=== PATIENT | female | born 1975 | race Caucasian/White ===

== ENCOUNTER → 2020-02-29 11:16 | Outpatient (CLI) | payer OTHER, SELFPAY ==
--- NOTE | ~2020-02-29 | XR_ITS ---
XR lumbar spine min 4V, XR sacroiliac joints min 3V 02/29/2020 12:19 Indication: Osteoarthritis. Procedure: 5 views lumbar spine and 3 view sacroiliac joints Comparison: No prior studies for comparison. Findings: There is disc narrowing at L3-4 and L4-5. There are facet degenerative changes at L4-5 and L5-S1. No acute fracture, subluxation or dislocation. No evidence for spondylolisthesis. Sacroiliac j oints are symmetric without evidence for significant degenerative change, ankylosis or erosive change . Sacral foramen are symmetric. There is a sclerotic lesion of the right ilium, likely benign bone is land. Impression: 1: Mild lumbar spondylosis. Reviewed, dictated and finalized at location A. PING CAR CONDUCTOR Impression: 1: Mild lumbar spondylosis. Impression: 1: Mild lumbar spondylosis.
--- NOTE | ~2020-02-29 | XR_ITS ---
EXAMINATION: XR hand BI arthritis min 3V DATE: 02/29/2020 12:19 INDICATION: Unspecified osteoarthritis, unspecified site. TECHNIQUE: 4 views of right hand and 4 views of left hand on a total of 7 radiographs were obtained. COMPARISON: None. FINDINGS: RIGHT HAND: Bone alignment is normal. No fracture. There is mild osteoarthritis of first carpometacar pal joint and second and third distal interphalangeal joints. LEFT HAND: Bone alignment is normal. No fracture. There is mild osteoarthritis of first carpometacarp al joint and second and fifth distal interphalangeal joints. IMPRESSION: 1. Mild polyarticular osteoarthritis. Reviewed, dictated and finalized at location A. RIST
--- NOTE | ~2020-02-29 | XR_ITS ---
EXAMINATION: XR knee LT min 4V DATE: 02/29/2020 12:19 INDICATION: Unspecified osteoarthritis, unspecified site. TECHNIQUE: 4 views of left knee were obtained. COMPARISON: None. FINDINGS: Bone alignment is normal. No fracture. There is mild osteoarthritis of medial and patellofe moral compartments. No knee joint effusion. IMPRESSION: 1. Mild left knee osteoarthritis. Reviewed, dictated and finalized at location A. OR ESTIMATOR
== END ==
PROVIDERS: PCP Physician Assistant; Visit Provider Internal Medicine
DX: M47.896 Other spondylosis, lumbar region (principal); M19.041 Primary osteoarthritis, right hand; M19.042 Primary osteoarthritis, left hand; M17.12 Unilateral primary osteoarthritis, left knee
CPT/HCPCS: 72110; 72202; 73130; 73564

== ENCOUNTER 2024-05-25 10:56 | Outpatient (CLI) | payer OTHER, SELFPAY ==
--- NOTE | ~2024-05-25 | XR_ITS ---
EXAMINATION: XR chest 2V DATE: 05/25/2024 11:19 INDICATION: 10 days of cough TECHNIQUE: PA and lateral views of the chest were obtained. COMPARISON: None FINDINGS: The lungs are clear with no focal airspace opacities, pulmonary edema, pleural effusion or pneumothor ax. Cardiomediastinal silhouette is normal. Prominent amorphous calcific density overlying the right greater tuberosity consistent with rotator cuff calcific tendinitis. IMPRESSION: 1. No acute cardiopulmonary disease. 2. Right rotator cuff calcific tendinitis. Reviewed, dictated and finalized at location [facility]. [facility]
--- OUTSIDE RECORDS SUMMARY | 2024-05-25 14:02 | XMS_ITS ---
Author Organization [employer] [facility] Address [address] [address] Care Team Providers Care Bar Examiner Name Role Phone Brooke Heaton Primary Care Provider [phone] AMADOR AMADO Unavailable [phone] REASON FOR VISIT lab review/follow up Medications Medication SIG (Take, Route, Frequency, Duration) Notes Start Date End Date Status Vitamin D2 *Please review a nd pick correct strength-formulatio n from TurnStaran options. If intended option is not shown, discontinue and re-order from Quick Search* Active Tirosint 50 MCG (0.05 MG) 1 CAP(S) ORALLY ONCE A DAY *Please review and pick correct strength-formulatio n from TurnStaran options. If intended option is not shown, discontinue and re-order from Quick Search* Active metFORMIN HCl ER 500 MG TAKE 1 TABLET BY MOUTH ONCE A DAY WITH LARGEST MEAL 30 DAYS for 90 Active Mounjaro 2.5 MG/0.5ML as directed Subcutaneous Active Fish Oil *Please review a nd pick correct strength-formulatio n from TurnStaran options. If intended option is not shown, discontinue and re-order from Quick Search* Active Vital Signs Blood pressure systolic 97 mm Hg 03/19/20 24 Blood pressure diastolic 56 mm Hg 024 Heart Rate 74 /min 03/19/2024 Height 68 in 03/19/2024 Weight 184.0 lbs 03/19/2024 BMI 27.97 kg/m2 03/19/2024 Encounters Encounter Location Date Provider Diagnosis [facility], [place] - Brooke Heaton [id number] [place] [address] 03/19/2024 Brooke Heaton Hypothyroidism, unspecified E03.9 ; Vitamin D deficiency, unspecified E55.9 ; Obesity, unspecified E66.9 and Dietary counseling and surveillance Z71.3 Assessments Encounter Date Diagnosis (ICD Code) Assessment Notes Treatment Notes Treatment Clinical Notes Section Notes 03/19/2024 Hypothyroidism, unspecified (ICD-10 - E03.9) 03/19/2024 Vitamin D deficiency, unspecified (ICD-10 - E55.9) 03/19/2024 Obesity, unspecified (ICD-10 - E66.9) 03/19/2024 Dietary counseling and surveillance (ICD-10 - Z71.3) 03/19/2024 Other Assessment and Plan: 1. Weight loss:- Patient has lost 19 pounds and is feeling well. Continue current weight loss plan and monitor progress. 2. Constipation:- Patient reports improvement in constipation by adjusting diet. Encourage continued dietary adjustments and adequate hydration. 3. Medication management (Mounjaro, Metformin, Vitamin D2, Fish oil):- Patient is stable on 2.5 mg Mounjaro and does not wish to increase the dose. Continue current medication regimen and monitor for any changes in symptoms or side effects. 4. Blood glucose monitoring (Dexcom):- Patient reports occasional high readings due to stress but overall good control. Encourage continued monitoring and stress management techniques. 5. Menstrual cycle irregularity:- Patient reports cycles are in range but not as consistent. Continue to monitor and reassess if changes occur. 6. Sleep and snoring:- Patient reports improvement in sleep and minimal snoring. Continue current management and monitor for any changes. 7. Thyroid medication (Tirosint):- Patient is stable on current dose. Monitor weight loss progress and consider adjusting the dose if significant weight loss occurs. 8. Shoulder discomfort and possible frozen shoulder:- Encourage continued physical therapy, glucosamine chondroitin supplementation, and heat therapy as needed. If pain worsens or does not improve, consider imaging. 9. Refills and blood work:- Check patient's refill status and provide refills as needed. Order blood work for the next visit in the spring. 10. Nutritional support:- Patient to continue with shakes as part of her weight loss plan. Spent 15 minutes preventative counseling patient on dietary recommendations and changes in setting of hyperglycemia- need to restrict refined sugars and processed foods and incorporate up to 150 minutes of moderate level activity weekly. Spent 25 minutes preparing to see the patient (ex review of tests/chart), obtaining and / or reviewing separately obtained history, performing a medically appropriate examination and/or evaluation, counseling and educating the patient/family/wound care technician, ordering medications, tests, or procedures, referring and communicating with other health daycare provider, documenting clinical information in the electronic or other health record, independently interpreting results and communicating results to the patient/family/wound care technician and care coordinating patient plan. Patient alert and oriented x 4 and aware of discussion noted above and in agreeance to plan in management of hypothyroidism, obesity/weight loss management, vit D def and perimenopausal changes. Plan Of Treatment Treatment Notes Assessment Notes Other Assessment and Plan: 1. Weight loss:- Patient has lost 19 pounds and is feeling well. Continue current weight loss plan and monitor progress. 2. Constipation:- Patient reports improvement in constipation by adjusting diet. Encourage continued dietary adjustments and adequate hydration. 3. Medication management (Mounjaro, Metformin, Vitamin D2, Fish oil):- Patient is stable on 2.5 mg Mounjaro and does not wish to increase the dose. Continue current medication regimen and monitor for any changes in symptoms or side effects. 4. Blood glucose monitoring (Dexcom):- Patient reports occasional high readings due to stress but overall good control. Encourage continued monitoring and stress management techniques. 5. Menstrual cycle irregularity:- Patient reports cycles are in range but not as consistent. Continue to monitor and reassess if changes occur. 6. Sleep and snoring:- Patient reports improvement in sleep and minimal snoring. Continue current management and monitor for any changes. 7. Thyroid medication (Tirosint):- Patient is stable on current dose. Monitor weight loss progress and consider adjusting the dose if significant weight loss occurs. 8. Shoulder discomfort and possible frozen shoulder:- Encourage continued physical therapy, glucosamine chondroitin supplementation, and heat therapy as needed. If pain worsens or does not improve, consider imaging. 9. Refills and blood work:- Check patient's refill status and provide refills as needed. Order blood work for the next visit in the spring. 10. Nutritional support:- Patient to continue with shakes as part of her weight loss plan. Spent 15 minutes preventative counseling patient on dietary recommendations and changes in setting of hyperglycemia- need to restrict refined sugars and processed foods and incorporate up to 150 minutes of moderate level activity weekly. Spent 25 minutes preparing to see the patient (ex review of tests/chart), obtaining and / or reviewing separately obtained history, performing a medically appropriate examination and/or evaluation, counseling and educating the patient/family/caregiver, ordering medications, tests, or procedures, referring and communicating with other health daycare provider, documenting clinical information in the electronic or other health record, independently interpreting results and communicating results to the patient/family/caregiver and care coordinating patient plan. Patient alert and oriented x 4 and aware of discussion noted above and in agreeance to plan in management of hypothyroidism, obesity/weight loss management, vit D def and perimenopausal changes. Next Appt Details Follow Up: 4 Months, Reason: labwork Provider Name:Brooke Heaton, 10:15:00 AM, [address] , [place], [address], Progress Notes * Carin AKHTARDOB:1975 ( 49 yo F)Acc No.[id number]:03/19/2024 Progress Notes Patient: Carin JACOBS Provider: Jose Heaton MD :1975 A ge:49 Y S ex:Female Date:03/19/2024 Address:[address] [place] [address] Subjective: * Chief Complaints: * 1 . Lab review/follow up. * HPI: I nterval Hx: 49 yo female comes in for follow up in management of hypothyroidism, fatigue and obesity. last seen in Dec at that time we continued tirosint 50 mcg daily. We continued metformin and added zepbound for weight loss/management. Carin reports a 19-pound weight loss and overall well-being, with improved constipation through dietary adjustments. She is stable on 2.5 mg Mounjaro, metformin, vitamin D2, and fish oil, and does not wish to increase her medication dosage. Her blood glucose levels are generally well-controlled with occasional stress-related spikes. She has irregular menstrual cycles and improved sleep. Carin is managing shoulder discomfort with physical therapy and Pilates, and is considering glucosamine chondroitin supplementation. She is paying [id number] for Tirosint due to insurance coverage issues. The patient, Carin, reports a weight loss of 19 pounds and is feeling well overall. She experienced a bout of constipation but has managed it by adjusting her diet. She has been taking 2.5 mg of Mounjaro for three to four months and does not feel the need to increase the dosage. Carin is also taking metformin, vitamin D2, and fish oil. She reports her menstrual cycles are within range but not as consistent as before. Carin has been monitoring her blood glucose levels with a Dexcom device and has noticed occasional higher readings due to stress, such as 143 mg/dL, but they do not remain elevated for long periods. She is hesitant to increase her medication dosage as she is not diabetic. She mentions that her extreme lows during sleep have improved. The patient has been working with a dietitian and has been consuming lemon water to help with blood sugar spikes and inflammation. She is open to the possibility of coming off thyroid medication if her health continues to improve. Carin reports a possible issue with her shoulder, which has been assessed by a physical therapist and a massage therapist. She has been advised to consider the possibility of frozen shoulder. The patient is currently not taking any glucosamine or chondroitin supplements for this issue. She is participating in physical therapy and Pilates to improve her range of motion. The patient is unsure about her medication refills and mentions that her pharmacy usually contacts the office for refills. She is currently paying around $60 to $70 per month for Tirosint, which is not covered by her insurance. She has been prescribed the gel capsule form due to her gluten intolerance. * ROS: U ROLOGY: no d ifficulty urinating. n o b lood in urine. n o u rinary urgency. n o f requent urination. n o u rinary incontinence. n o v oiding dysfunction. n o v ulvodynia. n o d ysparaunia. n o r ecurrent UTI. n o w eak flow. n o d ribbling after urination. n o f requent bladder infections. n o k idney stone. n o k idney disease. n o u rine hesitancy.?no p ainful urination. N UTRITION: greater than body requirmemts y es. L ess than body requirements y es. a ppropriate / adequate y es, y es. C ONSTITUTIONAL: no w eight gain. n o l oss of appetite. n o?fever. n o w eakness. n o w eight loss. n o n ight sweats. n o n ausea. n o v isual changes. n o c hange in sleep patterns. h +p reviewed y es, R OS form reviewed with patient see scan for detail. n o c hange in activity capacity.? D ERMATOLOGY: no r jakub. n o c hange in color of moles. n o?lumps. n o d ry or sensitive skin. n o h sherlyn. n o o filomena skin. n o?acne. n o m oles-irregular. n o m oles-change/new. n o b oils. n o dandruff. n o e xcessive body odor. n o p soriasis. n o f ungal infections. n o n ail problems. n o r edness/inflammation. n o a thlete's foot. n o s kin cancer. n o e czema. E NDOCRINOLOGY: no f atigue. n o e xcessive sweating. n o e xcessive thirst. n o e xcessive urination. n o w eight loss. n o s leep disturbance. n o c old intolerance. n o h eat intolerence. n o t hyroid disease. n o i ncreased loss of hair. n o h x of borderline diabetes. n o d iabetes. n o a bdormal body hair. n o r heumatism. n o c hanges in skin texture.? N EUROLOGY: no h eadache. n o t ingling numbness. n o s eizures. n o i nsomnia. n o m andria loss. n o d izziness. n o g ait abnormality. n o c hange in sensation anywhere on body. n o l ocalized weakness or numbness. n o b lackouts or near blackouts. n o m igraine. n o t remors.?no f ainting spells. n o h ead injury. n o s troke. O PTHALMOLOGY: no d iminished vision. n o e ye irritation. n o?drainage from eyes. n o b lurring of vision. n o s easonal eye sx. n o?dander related eye sx. n o l oss of vision. n o c ataracts. n o g lasses/contacts. n o g laucoma. n o d etached retina. n o m acular degeneration.?no e ye redness. R ESPIRATORY: no s hortness of breath. n o c hest pain. n o?wheezing. n o a sthma. n o b reathlessness when lying flat. n o p rolonged cough. n o f requent infections (bronchitis). n o e mphysema. n o c hest congestion. n o s leep apnea. A LLERGY: no r unny nose. n o s cratchy throat. n o i tchy eyes. n o e ar fullness. n o s inus congestion. n o s tuffy nose. n o w atery eyes. n o s easonal allergies. n o h ay fever. n o a llergy.?no p olyps. n o s neezing. H EMATOLOGY/LYMPH: no s wollen glands. n o f atigue. n o l oss of appetite. n o e asy bruising. n o e asy bleeding. n o a nemia. ? E NT: no c old. n o c ough. n o c oughing blood.?no n ose bleed. n o h earing loss. n o c hange in voice. n o s ore throat. n o r inging in ears. n o s noring. n o e ar pain. n o r unny nose. n o w atery eyes. n o s inus infection. n o e ar infection. n o facial pain. n o h oarseness. n o g oiter. n o g um problems. n o?postnasal drip. n o f requent nosebleeds. C ARDIOLOGY: no c hest pain. n o p alpitations. n o l eg swelling. n o d izziness. n o s hortness of breath. n o v aricose veins.?no l eg cramps. n o c old hands or feet. n o h igh blood pressure. n o ankle swelling. n o c ardiac catheterization. n o h eart attacks. n o a ngina. n o m urmurs. n o l ow blood pressure. n o l eg pain that resolves w/rest. n o p urple fingers or lips. n o i rregular heart rate. n o c ongenital heart defects. n o d izziness when standing up quickly. n o a wakening at night short of breath. G ASTROENTEROLOGY: no n ausea. n o h eartburn. n o s tool incontinence. n o r eflux. n o a bdominal pain. n o i ndigestion. n o h emorrhoids. n o h iatal hernia. n o u lcers. n o a nal fissures. n o?hepatitis. n o g allstones. n o r ed blood after bowel movements. n o v omiting. n o b loating/belching. n o d ifficulty swallowing. n o d iarrhea.?no c onstipation. n o c hange in bowel habits. n o b lood in stool. ? M USCULOSKELETAL: no j oint swelling. n o j oint pain. n o l eg cramps. n o j oint stiffness. n o a rthritis. n o b ack pain. n o?muscle aches. n o m orning stiffness. n o t endinitis. n o n jeannine pain. no b ursitis. n o b one marrow biopsy. n o g out. a ctivity intolerance?weakness. n o f racture. P SYCHOLOGY: no h igh stress level. n o d epression. n o?sleep disturbances. n o r brunilda sx worse with stress. n o s uicidal ideation. n o e ating disorder. n o m ental or physical abuse. n o a nxiety. n o h eadaches. d isease state y es. F EMALE REPRODUCTIVE: no h eavy periods. n o d ysparaunia. n o s exually active. n o p remenstrual syndrome. n o d ysmenorrhea. n o i nfertility. n o f requent yeast infections. n o v aginal itching. n o i ntermenstrual bleeding. n o p ost coital bleeding. n o p ostmenopausal bleeding. n o p elvic pain. n o m enstral cycle. n o v aginal discharge. n o v aginal dryness. n o o varian cysts. n o f ibroids. n o d ischarge from breast. n o abn. bleeding between cycles. n o p ostmenopausal symptoms. n o l oss of sexual interest. n o p ainful sexual intercourse. n o e ndometriosis. n o v aginal warts. n o a bnormal pap. n o i rregular periods. n o a bnormal vaginal discharge. n o h ot flashes. * Medical History: H ypoglycemic, Gestational Diabetes. * Surgical History: a ppendectomy , ablation , Child 1999, 2003,2005, 2007 . * Family History: N o Family History documented.. * Social History: S moking: no . A lcohol: yes, rarely. * Medications: T tommyg Mounjaro(Tirzepatide) 2.5 MG/0.5ML Solution Auto-injector as directed Subcutaneous , Taking Fish Oil , Notes to Pharmacist: *Please review and pick correct strength-formulation from TurnStaran options. If intended option is not shown, discontinue and re-order from Quick Search*, Taking Vitamin D2 , Notes to Pharmacist: *Please review and pick correct strength-formulation from TurnStaran options. If intended option is not shown, discontinue and re-order from Quick Search*, Taking Tirosint 50 MCG (0.05 MG) CAPSULE 1 CAP(S) ORALLY ONCE A DAY , Notes to Pharmacist: *Please review and pick correct strength-formulation from [employer]Staran options. If intended option is not shown, discontinue and re-order from Quick Search*, Taking metFORMIN HCl ER 500 MG Tablet Extended Release 24 Hour TAKE 1 TABLET BY MOUTH ONCE A DAY WITH LARGEST MEAL 30 DAYS Objective: * Vitals: H R: 74, BP: 97/56, Ht: 68, Wt: 184.0, BMI: 27.97. * Examination: G eneral Examination: General n ormal, NAD, well nourished and hydrated, pleasant. Neck, thyroid : s upple. Heart: B P wnl, RSR, no murmurs. Lungs: n ormal, respirations easy with conversation and ambulation. Abdomen: n ormal, round, non-distended. Neurologic exam: u nremarkable. Extremities: u nremarkable. Peripheral pulses: n ormal (2+) bilaterally . Psych: o rientation to person, place & situation, appropriate judgment noted. Assessment: * Assessment: 1. H ypothyroidism, unspecified - E03.9 (Primary) 2 . V itamin D deficiency, unspecified - E55.9 3 . O besity, unspecified - E66.9 4 . D ietary counseling and surveillance - Z71.3 Plan: * Treatment: * Procedure Codes: 9 9401 P/M BANKER MASON, INDIV 15 MIN * Follow Up: 4 Months (Reason: labwork) * Billing Information: * Visit Code: 94649 Office Visit, Est Pt., Level 4. * Procedure Codes: 71888 P/M BANKER [facility]ON, INDIV 15 MIN. * E WASHER Sign off status: Completed true * Provider: Jose Heaton MD Date: 1 05/20/2023 Generated for Renea gold/Kirstie/Escobaritting on: 0 05/25/2024 02:02 PM PLATE WASHER History and Physical Notes * HPI (History of Present Illness) Category Sub-Category Detail Notes Category Not es Interval Hx 49 yo female comes in for follow up in management of hypothyroidism, fatigue and obesity. last seen in Dec at that time we continued tirosint 50 mcg daily. We continued metformin and added zepbound for weight loss/management. Carin reports a 19-pound weight loss and overall well-being, with improved constipation through dietary adjustments. She is stable on 2.5 mg Mounjaro, metformin, vitamin D2, and fish oil, and does not wish to increase her medication dosage. Her blood glucose levels are generally well-controlled with occasional stress-related spikes. She has irregular menstrual cycles and improved sleep. Carin is managing shoulder discomfort with physical therapy and Pilates, and is considering glucosamine chondroitin supplementation. She is paying [id number] for Tirosint due to insurance coverage issues. The patient, Carin, reports a weight loss of 19 pounds and is feeling well overall. She experienced a bout of constipation but has managed it by adjusting her diet. She has been taking 2.5 mg of Mounjaro for three to four months and does not feel the need to increase the dosage. Carin is also taking metformin, vitamin D2, and fish oil. She reports her menstrual cycles are within range but not as consistent as before. Carin has been monitoring her blood glucose levels with a Dexcom device and has noticed occasional higher readings due to stress, such as 143 mg/dL, but they do not remain elevated for long periods. She is hesitant to increase her medication dosage as she is not diabetic. She mentions that her extreme lows during sleep have improved. The patient has been working with a dietitian and has been consuming lemon water to help with blood sugar spikes and inflammation. She is open to the possibility of coming off thyroid medication if her health continues to improve. Carin reports a possible issue with her shoulder, which has been assessed by a physical therapist and a massage therapist. She has been advised to consider the possibility of frozen shoulder. The patient is currently not taking any glucosamine or chondroitin supplements for this issue. She is participating in physical therapy and Pilates to improve her range of motion. The patient is unsure about her medication refills and mentions that her pharmacy usually contacts the office for refills. She is currently paying around $60 to $70 per month for Tirosint, which is not covered by her insurance. She has been prescribed the gel capsule form due to her gluten intolerance. Examination Category Sub-Category Detail Notes Category Not es General Examination Neck, thyroid : supple Heart: BP wnl, RSR, no murm urs Lungs: normal, respirations easy with conversation and ambulation Abdomen: normal, round, non-d istended Extremities: unremarkable General normal, NAD, well no urished and hydrated, pleasant Neurologic exam: unremarkable Peripheral pulses: normal (2+) bilatera lly Psych: orientation to perso n, place & situation, appropriate judgment noted
--- OUTSIDE RECORDS SUMMARY | 2024-05-25 14:02 | XMS_ITS ---
Author Organization [facility] Address [address] [address] Care Team Providers Care Project Economist Name Role Phone Brooke Heaton Primary Care Provider AMADOR AMADO Unavailable [phone] REASON FOR VISIT 3 Month Follow-up Encounters Encounter Location Date Provider Diagnosis [facility] - Brooke Heaton [address] [place] [address] 03/12/2024 Brooke Heaton Plan Of Treatment Next Appt Details Provider Name:Brooke Sudarshan, 10:15:00 AM, [address], [place], [address], Progress Notes * Carin AKHTARDOB:1975 ( 49 yo F)Acc No.[id number]:03/12/2024 Progress Notes Patient: Carin JACOBS Provider: Jose Heaton MD :1975 A ge:49 Y S ex:Female Date:03/12/2024 Address:[address] Subjective: * Chief Complaints: * 1 . 3 Month Follow-up. * Medical History: Objective: * Vitals: Assessment: Plan: * Treatment: * Billing Information: * Visit Code: * Procedure Codes: * Electronic signature of Davian Heaton MD on 05/25/2024 at 02:02 PM OFFICE AGENT Sign off status: Pending * Provider: Jose Heaton MD Date: 1 05/13/2023 Generated for Renea gold/Kirstie/eTanismitting on: 0 05/25/2024 02:02 PM OFFICE AGENT
--- OUTSIDE RECORDS SUMMARY | 2024-05-25 14:03 | XMS_ITS | Patient Health Record ---
Author Organization [employer] [facility] Address [address] [address] Care Team Providers Care Client Liaison Name Role Phone Brooke Heaton Primary Care Provider AMADOR AMADO Unavailable [phone] Migration, Provider Unavailable Unavailable Results Component Value Reference Range Notes COMPREHENSIVE METABOLIC PANE L Reviewed date:11/29/2023 08:30:35 AM Interpretation: Performing [facility], [address], [place], [address] Izabel Mccurdy Notes/Report: FASTING:YES FASTING: YES VITAMIN D, 25-HYDROXY, LC/MS /MS Reviewed date:11/29/2023 08:31:01 AM Interpretation: Performing Lab:Steve MAYS, [address] [place], [address] Izabel Mccurdy MD Notes/Report: FASTING:YES FASTING: YES ACTH, PLASMA Reviewed date:11/29/2023 08:30:48 AM Interpretation: Performing Lab:Steve FLOYD/Rey [facility], [address] [address] , [place], [address] Tom Alcantar M.D.,PhD Notes/Report: FASTING:YES FASTING: YES T3, FREE Reviewed date:11/29/2023 08:29:31 AM Interpretation: Performing Lab:[facility], [address] [place], [address] Izabel Mccurdy MD Notes/Report: FASTING:YES FASTING: YES CORTISOL, TOTAL Reviewed date:11/29/2023 08:29:59 AM Interpretation: Performing Lab:[facility], [address], [place], [address] Izabel Mccurdy MD Notes/Report: FASTING:YES FASTING: YES C-PEPTIDE Reviewed date:11/29/2023 08:29:53 AM Interpretation: Performing Lab:Steve [facility], [address], [place], [address] Izabel Mccurdy MD Notes/Report: FASTING:YES FASTING: YES DHEA SULFATE Reviewed date:11/29/2023 08:29:43 AM Interpretation: Performing Lab:[facility], [address], [place], [address] Izabel Mccurdy MD Notes/Report: FASTING:YES FASTING: YES FSH Reviewed date:11/26/2023 10:15:39 AM Interpretation: Performing Lab:[facility], [address], [place], [address] Izabel Mccurdy MD Notes/Report: FASTING:YES FASTING: YES HEMOGLOBIN A1c Reviewed date:11/26/2023 10:14:40 AM Interpretation: Performing Lab:[facility], [address] [place], [address] [facility] Mccurdy Notes/Report: FASTING:YES FASTING: YES INSULIN Reviewed date:11/26/2023 10:15:21 AM Interpretation: Performing Lab:[facility], [address], [place], [address] Izabel Mccurdy MD Notes/Report: FASTING:YES FASTING: YES LH Reviewed date:11/26/2023 10:15:30 AM Interpretation: Performing Lab:[facility], [address], [place], [address] Izabel Mccurdy MD Notes/Report: FASTING:YES FASTING: YES CBC (INCLUDES DIFF/PLT) Reviewed date:11/29/2023 08:30:10 AM Interpretation: Performing Lab:Steve BRADLEY, [address] [place], [address] Izabel Martinez Vo Notes/Report: FASTING:YES FASTING: YES VITAMIN B12/FOLATE, SERUM PA CLAUDE Reviewed date:11/29/2023 08:29:37 AM Interpretation: Performing Lab:[facility], [address] [place], [address] Izabel Mccurdy MD Notes/Report: FASTING:YES FASTING: YES PROGESTERONE Reviewed date:11/29/2023 08:30:21 AM Interpretation: Performing Lab:[facility], [address] , [place], [address] RobertaZina Mccurdy Notes/Report: FASTING:YES FASTING: YES IRON AND TOTAL IRON BINDING CAPACITY Reviewed date:11/29/2023 08:30:42 AM Interpretation: Performing Lab:[facility], [address], [place], [address] Izabel Mccurdy MD Notes/Report: FASTING:YES FASTING: YES T4, FREE Reviewed date:11/29/2023 08:29:17 AM Interpretation: Performing Lab:[facility], [address] [place], [address] [facility] Mccurdy Notes/Report: FASTING:YES FASTING: YES TSH Reviewed date:11/29/2023 08:30:54 AM Interpretation: Performing Lab:[facility], [address] [place], [address] [facility] Mccurdy Notes/Report: FASTING:YES FASTING: YES TESTOSTERONE, FREE (DIALYSIS ) AND TOTAL,MS Reviewed date:11/29/2023 08:29:25 AM Interpretation: Performing Lab:[facility], [employer], [facility] [address], [address], [place], [address] Noemi Boyle MD,PhD Notes/Report: FASTING:YES FASTING: YES TESTOSTERONE, TOTAL, MS 14 2-45 ng/dL For additional information, please refer to https://education.ideaTree - innovate | mentor | investdiagnostIronGate.com/faq/EIM697 (This link is being provided for informational/educational purposes only.) (Note) This test was developed and its analytical performance characteristics have been determined by [employer]. It has not been cleared or approved by the FDA. This assay has been validated pursuant to the CLIA regulations and is used for clinical purposes. TESTOSTERONE, FREE 2.7 0.1-6.4 pg/mL (Note) This test was developed and its analytical performance characteristics have been determined by [employer]. It has not been cleared or approved by the FDA. This assay has been validated pursuant to the CLIA regulations and is used for clinical purposes. [facility] [address] [address],[address] [facility] [address] Noemi Boyle MD, PhD DEXAMETHASONE Reviewed date:12/05/2023 06:07:54 PM Interpretation: Performing Lab:PHILLIP [employer] Nate/Rey [facility],, [address] [place], [address] Rosa Gray MD,PhD,DOMINIK Notes/Report: DEXAMETHASONE 345 Reference Ranges for Dexamethasone: Baseline: Less than 20 ng/dL 1 mg dexamethasone overnight: 180-550 ng/dL (8:00-10:00 AM) This test was developed and its analytical performance characteristics have been determined by [employer]. It has not been cleared or approved by FDA. This assay has been validated pursuant to the CLIA regulations and is used for clinical purposes. CORTISOL, TOTAL Reviewed date:11/28/2023 09:13:25 PM Interpretation: Performing Lab:DAVON [facility], [address] [place], [address] Izabel Mccurdy MD Notes/Report: Reason For Referral No Information Medications Medication SIG (Take, Route, Frequency, Duration) Notes Start Date End Date Status Vitamin D2 *Please review a nd pick correct strength-formulatio n from [employer] options. If intended option is not shown, discontinue and re-order from Quick Search* Active Tirosint 50 MCG (0.05 MG) 1 CAP(S) ORALLY ONCE A DAY *Please review and pick correct strength-formulatio n from [employer] options. If intended option is not shown, discontinue and re-order from Quick Search* Active metFORMIN HCl ER 500 MG TAKE 1 TABLET BY MOUTH ONCE A DAY WITH LARGEST MEAL 30 DAYS for 90 Active Fish Oil *Please review a nd pick correct strength-formulatio n from [employer] options. If intended option is not shown, discontinue and re-order from Quick Search* Active Mounjaro 2.5 MG/0.5ML as directed Subcutaneous weekly for 30 days Active Problems Problem Type SNOMED Code ICD Code Onset Dates Problem Status W/U Status Risk Notes Problem Vitamin D deficiency (38154330) Vitamin D deficiency, unspecified (E55.9) Active confirmed Problem Hypothyroidism (86642324) Hypothyroidism, unspecified (E03.9) Active confirmed Problem Obesity (629103933) Obesity, unspecified (E66.9) Active confirmed Problem Irregular menstruation (16416525) Irregular menstruation, unspecified (N92.6) Active confirmed Vital Signs Heart Rate 74 /min 03/19/2024 Respiratory Rate 12 /min 12/12/2023 Blood pressure diastolic 56 mm Hg 03/19/2024 Height 68 in 03/19/2024 Blood pressure systolic 97 mm Hg 03/19/2024 Weight 184.0 lbs 03/19/2024 BMI 27.97 kg/m2 03/19/2024 Encounters Encounter Location Date Provider Diagnosis [facility] [address] [place] [address] 02/22/2024 Provider Migration Impaired fasting glucose R73.01 and Obesity, unspecified E66.9 [facility] [address] [place] [address] 11/21/2023 Brooke Sudarshan Hypothyroidism, unspecified E03.9 ; Impaired fasting glucose R73.01 ; Irregular menstruation, unspecified N92.6 ; Other fatigue R53.83 ; Vitamin D deficiency, unspecified E55.9 ; Dietary counseling and surveillance Z71.3 and Abnormal weight gain R63.5 [employer] [address] [place] [address] 12/12/2023 Brooke Heaton Hypothyroidism, unspecified E03.9 ; Vitamin D deficiency, unspecified E55.9 ; Prediabetes R73.03 ; Obesity, unspecified E66.9 ; Other fatigue R53.83 and Dietary counseling and surveillance Z71.3 [employer] [address] [place] [address] 03/19/2024 Brooke Sudarshan Hypothyroidism, unspecified E03.9 ; Vitamin D deficiency, unspecified E55.9 ; Obesity, unspecified E66.9 and Dietary counseling and surveillance Z71.3 [facility], [facility] - Brooke Sudarshan [address] [place] [address] 12/20/2023 Brooke Sudarshan Obesity, unspecified E66.9 [facility] [address] [place] [address] 01/10/2024 Brooke Sudarshan [facility] [place] [facility] [address] [place] [address] 01/14/2024 Brooke Sudarshan [facility], [facility] - Brooke Sudarshan [address] [place] [address] 01/14/2024 Brooke Sudarshan [facility] [place] [facility] [address] [place] [address] 04/10/2024 [facility] [address] [address] 12/12/2023 [facility] [address] [address] 12/18/2023 [facility] [place] [facility] [address] [address] 12/23/2023 [facility] Assessments Encounter Date Diagnosis (ICD Code) Assessment Notes Treatment Notes Treatment Clinical Notes Section Notes 02/22/2024 Impaired fasting glucose (ICD-10 - R73.01) 11/21/2023 Hypothyroidism, unspecified (ICD-10 - E03.9) Continue current regimen- send for full thyroid panel. 11/21/2023 Impaired fasting glucose (ICD-10 - R73.01) Discussed carb counting and how to read food labels. Recommended patient to utilize the diabetesfoZertob.com from the ADA website to help with food preparation as this presents ideal carb content per meal and will make carb counting easier for patient. Recommended she incorporate natural insulin sensitizers such as pears, apples, cinnamon, geoff and sweet potatoes to help mobilize her endogenous insulin. Recommended up to 150 minutes of moderate level activity /exercise per week. Trial on low dose metformin once daily with largest meal. 12/12/2023 Vitamin D deficiency, unspecified (ICD-10 - E55.9) Continue vitamin D therapy weekly as her levels are in ideal range. 12/12/2023 Hypothyroidism, unspecified (ICD-10 - E03.9) TSH and FT4 in ideal range- continue on tirosint 50 mcg daily. She is aware to take with water only and wait 30 minutes to have meds/food etc. 03/19/2024 Vitamin D deficiency, unspecified (ICD-10 - E55.9) 03/19/2024 Hypothyroidism, unspecified (ICD-10 - E03.9) 12/20/2023 Obesity, unspecified (ICD-10 - E66.9) 11/21/2023 Irregular menstruation, unspecified (ICD-10 - N92.6) Send for full hormone panel to screen for any concerns of hyperandrogenism or hypercortisolism. 12/12/2023 Prediabetes (ICD-10 - R73.03) Recommended she incorporate natural insulin sensitizers such as pears, apples, cinnamon, geoff and sweet potatoes to help mobilize her endogenous insulin. Recommended up to 150 minutes of moderate level activity /exercise per week. Continue metformin ER 500 mg but uptitrate to twice daily with meals especially if zepbound not covered by insurance. 03/19/2024 Obesity, unspecified (ICD-10 - E66.9) 02/22/2024 Obesity, unspecified (ICD-10 - E66.9) 11/21/2023 Other fatigue (ICD-10 - R53.83) Will send for thyroid antibodies to screen for autoimmune thyroid disease in adition to CBC, CMP, ferritin, vit D and B12/folate to screen for other potential secondary causes of fatigue. 12/12/2023 Obesity, unspecified (ICD-10 - E66.9) Trial on zepbound 2.5 mg weekly with largest meal. Recommended GLP1 agonist therapy as she is having trouble at times with cravings of sweets and portion control. She does exercise at least three days a week 45 minutes at a time. Discussed potentially reducing total carb intake to 120 grams daily into 4-5 small split meals with addition of healthy protein based snack at bedtime to help reduce cut off tender glass hyperglcemia from counterregulatory hormones. She has no history of pancreatitis or medullary thyroid cancer and is willing to trial on a GLP1 agonist therapy. She was advised to contact clinic if he/she experiences any nausea, vomiting or significant thyroid pain/swelling or abdominal pain so we can discuss and discontinue and potentiually look into other therapy. Discussed carb counting and how to read food labels. Recommended patient to utilize the [employer] from the ADA website to help with food preparation as this presents ideal carb content per meal and will make carb counting easier for patient. 03/19/2024 Dietary counseling and surveillance (ICD-10 - Z71.3) 11/21/2023 Vitamin D deficiency, unspecified (ICD-10 - E55.9) Send for vitamin D as she is taking vitamin D 70498 once weekly. 12/12/2023 Other fatigue (ICD-10 - R53.83) Will send for thyroid antibodies to screen for autoimmune thyroid disease in adition to CBC, CMP, ferritin, vit D and B12/folate to screen for other potential secondary causes of fatigue. 11/21/2023 Dietary counseling and surveillance (ICD-10 - Z71.3) discussed dietary measures in regards to weight loss- importance to restrict calories to 1200 per day if sedentary vs 3220-8699 calories depending on caloric expenditure. She was provided information on [employer] as this program manages metabolic syndrome and products include insulin sensitizers along with thyroid support/supplementat ion to help tailor weight loss in individuals who struggle with underlying autoimmune thyroid conditions and hyperglycemia (fasting glucose of 97 mg/dL). Spent up to 20 minutes discussing alternative weight loss options 12/12/2023 Dietary counseling and surveillance (ICD-10 - Z71.3) discussed dietary measures in regards to weight loss- importance to restrict calories to 1200 per day if sedentary vs 3793-9047 calories depending on caloric expenditure. She was provided information on [employer] as this program manages metabolic syndrome and products include insulin sensitizers along with thyroid support/supplementat ion to help tailor weight loss in individuals who struggle with underlying autoimmune thyroid conditions and hyperglycemia (fasting glucose of 106 mg/dL). Spent up to 20 minutes discussing alternative weight loss options. 11/21/2023 Abnormal weight gain (ICD-10 - R63.5) Send for DST to screen for hypercortisolism. 11/21/2023 Other Spent 45 minute s preparing to see the patient (ex review of tests/chart), obtaining and / or reviewing separately obtained history, performing a medically appropriate examination and/or evaluation, counseling and educating the patient/family/careg iver, ordering medications, tests, or procedures, referring and communicating with other health home care music therapist, documenting clinical information in the electronic or other health record, independently interpreting results and communicating results to the patient/family/careg iver and care coordinating patient plan. Patient alert and oriented x 4 and aware of discussion noted above and in agreeance to plan in management of hypothyroidism, impaired glucose, fatigue, irregular menstruation and weight management. . 12/12/2023 Other Spent 25 minutes preparing to see the patient (ex review of tests/chart), obtaining and / or reviewing separately obtained history, performing a medically appropriate examination and/or evaluation, counseling and educating the patient/family/careg iver, ordering medications, tests, or procedures, referring and communicating with other health home care music therapist, documenting clinical information in the electronic or other health record, independently interpreting results and communicating results to the patient/family/careg iver and care coordinating patient plan. Patient alert and oriented x 4 and aware of discussion noted above and in agreeance to plan in management of prediabetes, hypothyroidism, fatigue and weight management. Due to the nature of telemedicine, the ability to do physical assessment was limited to what can be accomplished by patient directed telehealth visit based on instruction. Those limits are understood by the patient and myself. Impression is based on history, available information, and physical findings accomplished with telehealth visit. Chronic disease/problem list/ medication list reviewed and updated where indicated. Discussed diagnosis, plan including risks, benefits, and options of treatment. Advised to call for new, worsening, or persistent symptoms. Level of patient risk was of moderate complexity due to the documented nature of presentation, the information assessment required and the nature of the development of an evaluation and treatment plan as documented. PMH, FHx, SHx, Surgical Hx, Quality management review carried out and addressed as documented today as part of this visit. Medication list was reviewed and adjusted as indicated. Medication requiring a refill was addressed. Risk and benefits of any new medications were discussed and all questions were answered. 03/19/2024 Other Assessment and Plan: 1. Weight [...] examination and/or evaluation, counseling and educating the patient/family/careg iver, ordering medications, tests, or procedures, referring and communicating with other health home care music therapist, documenting clinical information in the electronic or other health record, independently interpreting results and communicating results to the patient/family/careg iver and care coordinating patient plan. Patient alert and oriented x 4 and aware of discussion noted above and in agreeance to plan in management of hypothyroidism, obesity/weight loss management, vit D def and perimenopausal changes. Plan Of Treatment Next Appt Details Provider Name:Brooke Heaton, 10:15:00 AM, [address], [place], [address], Insurance Providers Payer Name Payer Address Payer Phone Subscriber Number Group Number Insured Name Patient Relationship to Insured Coverage Start Date Coverage End Date [employer] Medicare [address] [place] EUCEDA [id number] Carin Law Self - patient is the insured Medical (General) History Medical History History ICD Code Hypoglycemic Gestational Diabetes Surgical History Surgery Date(Month/Year) Child 1999, 2003,2005, 2008 ablation appendectomy"
--- OUTSIDE RECORDS SUMMARY | 2024-05-25 14:03 | XMS_ITS | Referral Summary ---
Author Organization [facility] Building C Address [address] [place] [address] Care Team Providers Care Piece Meat Trimmer Name Role Phone Yara Jay Primary Care Pr ovider Allergies No known active allergies Medications multivitamin capsule Take 1 capsule by mouth daily Active vit C/Zn gluc/herbal no.325 (ELDERBERRY ZINC VIT C MM) Apply to mouth Active benzonatate (TESSALON) 100 mg capsuleIndicati ons:Cough Take 1 capsule (100 mg total) by mouth 3 (three) times a day as needed for cough 42 capsule 06/26/2023 Active Active Problems Problem Noted Date Diagnosed Date Well woman exam with routine gynecological exam 05/08/2023 Assessment & Plan (05/08/2023 10:51 AM CHECK VIEWER): Pap smear obtained. Recommend self-breast exam and continued annual mammogram. Due to her symptoms of pain in the left breast and density noted at where it was tender a diagnostic mammogram and ultrasound was ordered. Mass of breast 05/08/2023 Acetabular labrum tear 08/10/2021 History of pelvic ultrasound 04/13/2021 Overview (04/13/2021): 04/10/21: US shows EMC 0.5 cm, bilat ovaries WNL Screening for cervical cancer 03/20/2021 Overview (05/13/2023): 05/08/23 - Pap negative 03/14/21 - Pap with Reflex to HR HPV - Negative - endometrial cells present Abnormal finding on CT scan 03/14/2021 Overview (03/24/2021): CT scan scanned in from 02/08/21. Notes Endocervical prominence. Pt seen here in March 2021. Getting pelvic US. Assessment & Plan (03/14/2021 3:20 PM CHECK VIEWER): Pt had endocervical prominence finding on CT scan. Discussed US being most accurate test for [employer] imaging. Will schedule US after next menses for evaluation. Encounter for gynecological examination without abnormal finding 03/14/2021 Assessment & Plan (03/14/2021 3:20 PM CHECK VIEWER): The patient was here for her well woman exam. Recommended healthy diet and exercise. Recommend yearly mammograms. Discussed importance of regular visits and cholesterol screening with PCP. Category 3 mammography resul t with short follow-up interval suggested for probably benign finding 01/08/2020 Gastric ulcer 12/12/2016 Pure hyperglyceridemia 08/22/2013 Overview (07/12/2016): PURE HYPERGLYCERIDEMIA Gestational diabetes mellitus 01/04/2012 Immunizations Immunization Administration Dates Next Due Influenza, Trivalent, IM (MDV) 02/25/2008 Pfizer SARS-CoV-2 Monovalent Vaccination (12+ Yrs) PURPLE 06/03/2020,05/08/2020 Social History Tobacco Use Types Packs/Day Years Used Date Smoking Tobacco: Never Smokeless Tobacco: Never Tobacco Cessation:Counseling Given: Not Answered Alcohol Use Standard Drinks/Week Comments Yes 0 (1 standard drink = 0.6 oz pur e alcohol) AUDIT-C Answer Date Recorded Q1: How often do you have a drink containing alc ohol? Monthly or less 05/08/2023 Q2: How many drinks containi ng alcohol do you have on a typical day when you are drinking? 1 or 2 05/08/2023 Frequency of Binge Drinking Not on file 04/10 Comments No Sex and Gender Information Value Date Recorded Sex Assigned at Not on file Legal Sex Female 7:35 PM CHECK VIEWER Gender Identity Not on file Sexual Orientation Not on file Occupation Industry Job Start Date Job End Date [employer] Not on file Not on file Not on file Last Filed Vital Signs Vital Sign Reading Time Taken Comments Blood Pressure 126/78 07/03/2023 8:01 AM CDT Pulse 64 07/03/2023 8:01 AM CDT Temperature 36.7 C (98.1 F) 07/03/2023 8:01 AM CDT Respiratory Rate 18 07/03/2023 8:01 AM CDT Oxygen Saturation 98% 07/03/2023 8:01 AM CDT Inhaled Oxygen Concentration - - Weight 95.3 kg (210 lb) 07/03/2023 8:01 AM CDT Height 172.7 cm (5' 8 ) 07/03/2023 8:01 AM CDT Body Mass Index 31.93 07/03/2023 8:01 AM CDT Plan of Treatment Not on file Procedures Procedure Name Priority Date/Time Associated Diagnosis Comments DIAGNOSTIC MAMMOGRAM BILATERAL W LUCIA Schedule Routine, Read Routine (OP Routine) 06/13/2023 9:31 AM CHECK VIEWER Mass of breast, unspecified laterality PAP WITH REFLEX TO HIGH RISK HPV Routine 05/08/2023 9:41 AM CHECK VIEWER Well woman exam with routine gynecological exam Encounter for Papanicolaou smear for cervical cancer screening Screening for human papillomavirus (HPV) from Last 3 Months or Most Recently Relevant to Health Maintenance Results * DIAGNOSTIC MAMMOGRAM BILATERAL W LUCIA (06/13/2023 9:31 AM CHECK VIEWER) Anatomical Region Laterality Modality Breast Bilateral Mammography 06/13/2023 11:1 1 AM CHECK VIEWER Impressions 06/13/2023 11:11 AM CHECK VIEWER No mammographic or sonographic evidence of malignancy in either breast. Benign findings in the left breast as discussed above. Findings and recommendations were communicated to the patient. OVERALL FINAL ASSESSMENT: BI-RADS Category 2: Benign. RECOMMENDATION: Annual screening mammography is recommended. The patient's information was entered into a reminder system with a target due date for the next mammogram. Electronically signed by: Laurent Catalan M.D. 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 COMPARISON: Prior mammograms and ultrasound. TECHNIQUE: Full field digital mammographic views of both breasts were performed, including computer aided detection (CAD) and tomosynthesis. Targeted breast sonogram was performed bilaterally. BREAST PARENCHYMAL COMPOSITION: There are scattered areas of fibroglandular density. MAMMOGRAM FINDINGS: There is no new suspicious abnormality in the RIGHT breast. The appearance of the breast is stable. There is a 1.9 cm oval nodule in the 12:00 location of the left breast. Marker is identified within the nodule compatible with known fibroadenoma. This is unchanged from prior studies. In the upper inner left breast, there is a 7 mm oval nodule which was not seen on prior study. There is a 7 mm oval nodule in the central left breast. SONOGRAM FINDINGS: Targeted left breast sonogram was performed. The patient's known fibroadenoma in the 11:00 location 5 cm from the nipple is identified and similar in appearance to prior ultrasound. In the 1:00 location 6 cm from the nipple, there is a 5 x 4 x 3 mm benign-appearing cyst. In the 12:00 location 4 cm from the nipple, there is a 7 x 3 x 5 mm benign-appearing cyst. These correlate well with patient's mammographic abnormalities. No suspicious sonographic abnormalities are identified. us Vidhi Dixon MD IMG MAMMO PROCEDURES Final Re sult * Pap with reflex to High Risk HPV and Genotyping (Cytology Component) (05/08/2023 9:41 AM CHECK VIEWER) Endocervical (Pap test) 05/08/2023 9:41 AM CHECK VIEWER 05/09/2023 11:13 AM CHECK VIEWER Narrative PATHOLOGY [facility] - 05/10/2023 2:17 PM CHECK VIEWER EPIC results best viewed via link to PDF [address] [address] Tele: Elisa Stevens MD - Judge Clerk CYTOLOGY REPORT Note to Patients: This report may contain a detailed description of human tissue sent by a health care provider to the laboratory for pathologic evaluation. The content of this report is essential for diagnosis and may provide important critical findings. This information may be unfamiliar to patients to review without a medical professional present. It is advised that the patient review this report in the presence of a health care provider who can answer questions and explain the details. Patient Name: CARIN AKHTAR. Address: [address] [place] [address] Gender: F : 1975 (Age: 48) Service: Location: N : [id number] [facility] #: [id number] Patient Type: [facility] [place] SPECIMEN Taken: 05/08/2023 Reported: 05/10/2023 Physician(s): Vidhi Dixon M.D. FINAL DIAGNOSIS: SOURCE OF SPECIMEN - ThinPrep Pap w/ reflex HPV: STATEMENT OF ADEQUACY Source: Cervical/Endocervical - Satisfactory for interpretation - Endocervical /Transformation Zone component present - Case screened using computer assisted imaging technology and manually re- screened by a preparatory technician. GENERAL CATEGORIZATION: - Negative for intraepithelial lesion or malignancy INTERPRETATION: - Acute Inflammation cad/05/10/2023 14:17Digna Pan M.S., [place] (ASCP) Report Reviewed and Electronically Signed By Digna Pan M.S., [place] (ASCP)Clerical Data Follow A; G0145 REPORT IMAGES AND/OR SCANNED DOCUMENTS ONLY VIEWABLE IN PDF FORMAT The Pap test is a screening test used to aid in the detection of cervical cancer and its precursors. It should not be the sole means by which malignant and premalignant lesions are diagnosed. Both false negative and false positive results may occur. It also has poor sensitivity for the detection of endometrial lesions and should not be used to evaluate suspected endometrial abnormalities. For these reasons it is most important to obtain Pap tests at regular intervals, as recommended by your physician or nurse practitioner. us Vidhi Dixon MD LAB CYTOLOGY ORDERABLES Final Result PATHOLOGY [facility] Laboratory Receiving [address] [place] [address] from Last 3 Months or Most Recently Relevant to Health Maintenance Insurance [facility] O [employer] HMO [facility]ETNA [facility] Care Teams Piece Meat Trimmer Relationship Specialty Start Date End Date Yara Jay PA PCP - General 06/04/17
--- OUTSIDE RECORDS SUMMARY | 2024-05-25 14:03 | XMS_ITS | Clinical Summary ---
Author Organization [facility] Building C Address [address] [place] [address] Care Team Providers Care Interactive Media Marketing Director Name Role Phone Yara Jay Primary Care [...] 05/08/2023 Assessment & Plan (05/08/2023 10:51 AM MANAGER NURSING HOME): Pap smear obtained. Recommend self-breast exam and [...] US. Assessment & Plan (03/14/2021 3:20 PM MANAGER NURSING HOME): Pt had endocervical prominence finding on CT scan. 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 Will schedule US after next menses for evaluation. Encounter for gynecological examination without abnormal finding 03/14/2021 Assessment & Plan (03/14/2021 3:20 PM MANAGER NURSING HOME): The patient was here for her well [...] SARS-CoV-2 Monovalent Vaccination (12+ Yrs) PURPLE 06/03/2020,05/08/2020 Surgical History Surgery Date Site/Laterality Comments APPENDECTOMY 04/08/2009 - 04/07/2010 Appendectomy BREAST BIOPSY 07/22/2020 Left ENDOMETRIAL BIOPSY EMB - Klabi - benign ENDOMETRIAL ABLATION 04/08/2009 - 04/07/2010 Klabi-Novasure Medical History Medical History Date Comments Hx Other Medical HIGH TRIGLYCERI MEIR Hx Other Medical ELEVATED GLUCOS E Family history of cancer mom's c ousin with genetic mutation; mom no longer living Family History Medical History Relation Name Comments Alzheimer's disease Mother Dementia Mother Ovarian cancer Mother's Sister Coronary artery disease Paternal Grandfather Coronary artery disease; Diabetes Paternal Grandfather Diabete s mellitus; Relation Name Status Comments Mother Alive Mother's Sister Paternal Grandfather Social History Tobacco Use Types Packs/Day Years [...] on file Legal Sex Female 7:35 PM MANAGER NURSING HOME Gender Identity Not on file Sexual Orientation Not on file Occupation Industry Job Start Date Job End Date [employer] Not on file Not on file Not on file Obstetrics History Para Term AB IAB SAB Ectopic Multiple Livin g Live Births 4 4 4 4 Date Outcome GA Total Labor Labor/2nd/3rd Weight Sex Type Anes PTL Ranjana A1 A5 Name Clin Para Para Para Para Last Filed Vital Signs Vital Sign Reading [...] 07/03/2023 8:01 AM CDT Plan of Treatment Health Maintenance Due Date Last Done Comments Albumin Creatinine Ratio, Urine 1975 Colon Cancer Screening-Colonoscopy 1975 Depression Screening 1975 Hemoglobin A1C 1975 Hepatitis C Screening 1975 eGFR 1975 Dilated Eye Exam 1975 Foot Exam 1975 Lipid Panel 1975 Pneumococcal vaccine <65 (1 of 2 - PCV) 01/26/1982 DTaP/Tdap/Td Vaccine (1 - Tdap) 01/26/1987 Hepatitis B Screening 01/26/1994 Covid-19 Vaccine (3 - 2023-2 5 season) 2023 06/03/2020, 05/08/2020 Influenza Vaccine (#1) 2023 02/25/2008 Cervical Cancer Screening 05/08/20242023, 05/08/2023, 03/14/2021, Additional history exists Regular Well Visit/Exam 18-64 05/08/2024 05/08/2023, 03/14/2021 Breast Cancer Screening-Mammogram 06/12/2024 06/13/2023, 01/05/2022, 01/04/2021, Additional history exists Procedures Procedure Name Priority Date/Time Associated Diagnosis Comments DIAGNOSTIC MAMMOGRAM BILATERAL W LUCIA Schedule Routine, Read Routine (OP Routine) 06/13/2023 9:31 AM MANAGER NURSING HOME Mass of breast, unspecified laterality PAP WITH REFLEX TO HIGH RISK HPV Routine 05/08/2023 9:41 AM MANAGER NURSING HOME Well woman exam with routine gynecological exam Encounter for Papanicolaou smear for cervical cancer screening Screening for human papillomavirus (HPV) from Last 3 Months or Most Recently Relevant to Health Maintenance Results * DIAGNOSTIC MAMMOGRAM BILATERAL W LUCIA (06/13/2023 9:31 AM MANAGER NURSING HOME) Anatomical Region Laterality Modality Breast Bilateral Mammography 06/13/2023 11:1 1 AM MANAGER NURSING HOME Impressions 06/13/2023 11:11 AM MANAGER NURSING HOME No mammographic or sonographic evidence of malignancy [...] Laurent Catalan M.D. Narrative 06/13/2023 11:11 AM MANAGER NURSING HOME EXAMINATION: DIAGNOSTIC MAMMOGRAM BILATERAL W LUCIA, US [...] and Genotyping (Cytology Component) (05/08/2023 9:41 AM MANAGER NURSING HOME) Endocervical (Pap test) 05/08/2023 9:41 AM MANAGER NURSING HOME 05/09/2023 11:13 AM MANAGER NURSING HOME Narrative PATHOLOGY [facility] - 05/10/2023 2:17 PM MANAGER NURSING HOME EPIC results best viewed via link to PDF [address], [place], [place] [address] Tele: Elisa Steevns MD - Supervisor [employer] CYTOLOGY REPORT Note to Patients: This report [...] the details. Patient Name: CARIN AKHTAR. Address: [address], [place], [place] [address] Gender: F : 1975 (Age: 48) Service: Location: N : [id number] Hospital #: [id number] Patient Type: [facility] SPECIMEN Taken: 05/08/2023 Reported: 05/10/2023 Physician(s): Vidhi Dixon M.D. FINAL DIAGNOSIS: SOURCE OF SPECIMEN - ThinPrep Pap w/ reflex HPV: STATEMENT OF ADEQUACY Source: Cervical/Endocervical - Satisfactory for interpretation - Endocervical /Transformation Zone component present - Case screened using computer assisted imaging technology and manually re- screened by a other sports coach or instructor. GENERAL CATEGORIZATION: - Negative for intraepithelial lesion or malignancy INTERPRETATION: - Acute Inflammation cad/05/10/2023 14:17Digna Pan M.S., [place] (ASCP) Report Reviewed and Electronically Signed By Digna Pan M.S., CT (ASCP)Clerical Data Follow A; G0145 REPORT IMAGES [...] MD LAB CYTOLOGY ORDERABLES Final Result PATHOLOGY [facility] Laboratory Receiving [address] [place] [address] from Last 3 Months or Most Recently Relevant to Health Maintenance Insurance [facility] Care Teams Interactive Media Marketing Director Relationship Specialty Start Date End Date Yara Jay PA PCP - General 06/04/17
--- OUTSIDE RECORDS SUMMARY | 2024-05-25 14:03 | XMS_ITS ---
Author Organization [facility] Address [address] [place] [address] Care Team Providers Care Plant Breeder Name Role Phone Brooke Heaton Primary Care Provider AMADOR AMADO [phone] Medications Medication SIG (Take, Route, Fr equency, Duration) Notes Start Date End Date Status Mounjaro 2.5 MG/0.5ML as directed Subcut aneous weekly for 30 days Active Encounters Encounter Location Date Provider Diagnosis [facility] [address] [place] [address] 04/10/2024 Brooke Heaton Plan Of Treatment Medication Medication Name Sig Start Date Stop Date Notes Mounjaro 2.5 MG/0.5ML as directed Subcut aneous weekly for 30 days Next Appt Details Provider Name:Brooke Heaton, 10:15:00 AM, [address] [place] [address], [id number], Progress Notes * Yessenia AKHTARchelaDOB:1975 ( 49 yo F)Acc No.[id number]:04/10/2024 Patient: Carin JACOBS :1975 A ge:49 Y S ex:Female Address:[address], [place] [address] * Refills Refill Mounjaro Solution Auto-injector, 2.5 MG/0.5ML, Subcutaneous, 4, as directed, weekly, 30 days, Refills=3 * true * Date: Generated for Printi ng/Faxing/eTransmitting on: 0 05/25/2024 02:02 PM PHYSICAL CHEMISTRY PROFESSOR
== END 2024-05-25 10:57 | disposition home or self-care (01) ==
PROVIDERS: PCP Physician Assistant; Visit Provider Physician Assistant
DX: R05.9 Cough, unspecified (principal); M75.31 Calcific tendinitis of right shoulder
CPT/HCPCS: 71046